=== PATIENT | male | born 2000 | race African-American/Black ===

== ENCOUNTER 2022-04-13 03:20 | Emergency (ER) | payer OTHER ==
[2022-04-13] MEDS ORDERED: Albuterol 200 PUFF (6.7GM INHALER) ONE (04:20)
[2022-04-13 05:37] LABS: SARS-CoV-2 NAA Rapid Test Not Detected (NotDetected)
== END 2022-04-13 04:36 | disposition home or self-care (01) ==
LOC: ERS 03:20
DX: B34.9 Viral infection, unspecified (principal); Z20.822 Contact with and (suspected) exposure to COVID-19